=== PATIENT | male | born 1990 | race African-American/Black ===

== ENCOUNTER 2018-06-17 22:11 | Emergency (ER) | payer MEDICAID ==
[~2018-06-17] VITALS: Ht 177.8 cm; Wt 129.3 kg
[2018-06-17 22:44] VITALS: BP 129/58
[2018-06-17] MEDS ORDERED: TETANUS-DIPTH-ACEL PERTUSSIS 0.5ML SYRG IM ONE (23:30)
== END 2018-06-18 00:50 | disposition home or self-care (01) ==
LOC: ER 22:11
DX: S61.411A Laceration without foreign body of right hand, initial encounter (principal); Z88.1 Allergy status to other antibiotic agents; W01.198A Fall on same level from slipping, tripping and stumbling with subsequent striking against other object, initial encounter; Y93.89 Activity, other specified; Y99.8 Other external cause status; Y92.098 Other place in other non-institutional residence as the place of occurrence of the external cause
CPT/HCPCS: 12001; 73130; 90471; 90715